=== PATIENT | male | born 1955 | race Caucasian/White ===

== ENCOUNTER 2016-06-22 18:59 | Observation (INO) | payer OTHER ==
[~2016-06-22] VITALS: Ht 172.7 cm; Wt 70.2 kg
[2016-06-22] MEDS ORDERED: losartan PO (19:38)
[2016-06-22] MEDS ORDERED: DOXA1TAB71 PO (19:38)
[2016-06-22] MEDS ORDERED: LEXA1TAB PO (19:38)
[2016-06-22] MEDS ORDERED: MULTLIQ7 PO (19:38)
[2016-06-22] MEDS ORDERED: NICOTINE 21MG/24HR 1 EA TRANSDERMAL TD SCH (21:00)
[2016-06-22] MEDS ORDERED: LOSA50TA20 PO (23:16)
[2016-06-22] MEDS ORDERED: VITMTA PO (23:16)
[2016-06-22] MEDS ORDERED: ACETAMINOPHEN TAB 650MG DOSE (2X325MG) PO PRN (23:30)
[2016-06-22] MEDS ORDERED: traZODone 50 MG TAB PO PRN ×2 (23:45)
[2016-06-23] VITALS (7 sets, daily range): BP systolic 120–173; BP diastolic 60–80
[2016-06-23] MEDS: TAMSULOSIN 0.4 MG CAP PO SCH ×2 (00:20→20:16)
[2016-06-23] MEDS ORDERED: SLF 3 ML SYR IV PRN (02:00)
[2016-06-23] MEDS: HEPARIN SOD (PORCINE) 5000 UNITS/ML VIAL SC SCH ×3 (06:34→20:16)
[2016-06-23] MEDS: SLF 3 ML SYR IV SCH ×3 (06:34→20:17)
[2016-06-23] MEDS ORDERED: POTASSIUM CHLORIDE 10 MEQ SR TABLET PO ONE (07:00)
[2016-06-23] MEDS: MULTIVITAMINS/MINERALS THERAP 1 TAB PO SCH (08:23)
[2016-06-23] MEDS ORDERED: PARoxetine 20 MG TAB PO SCH (09:00)
[2016-06-23] MEDS: NICOTINE 14 MG/24 HR TRANSDERMAL TD SCH (09:00)
[2016-06-23] MEDS ORDERED: LOSARTAN 50 MG TAB PO SCH (09:00)
[2016-06-23] MEDS: ALPRAZolam 0.25 MG TAB PO PRN ×2 (09:24→20:17)
[2016-06-23] MEDS: amLODIPine 5 MG TAB PO SCH (09:25)
--- NOTE | 2016-06-23 10:40 | IPNPDOC ---
Subjective Date Seen The patient was seen on 06/23/16. Subjective Chief Complaint/HPI The patient is a 60-year-old male admitted with a reason for visit of Depression , Hyponatremia. General: Denies: Chills, Fatigue, Night Sweats Constitutional: Denies: Chills, Fever, Malaise Eyes: Denies: Conjunctivae inflammation, Eyelid inflammation, Pain, Vision change ENT: Denies: Head Aches Skin: Denies: Jaundice, Lesions, Rash Pulmonary: Denies: Cough, Dyspnea Cardiovascular: Denies: Chest Pain, Orthopnea, Palpitations Gastrointestinal: Denies: Abdominal Pain, Nausea, Vomiting Neurological: Denies: Weakness Psych: Reports: Mood Normal, Denies: Anxiety, Depression Objective Physical Examination General Exam: Positive: Alert, Cooperative, No Acute Distress, Negative: Mild Distress, Moderate Distress Eye Exam: Positive: Conjunctiva & lids normal, EOMI, Negative: Ptosis, Sclera icteric ENT Exam: Positive: Atraumatic, Mucous membr. 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 fluid restricted Nephrology consulted-appreciate their input. Will repeat CMP today at noon. (2) Hypertension Status: Acute Problem Text: controlled on BP medical therapy, 150/60 (3) Depression Status: Acute Problem Text: maintained on anti-depression medication inpt., d/c SSRI and began Bupropion due to hyponatremia dx. (4) DVT prophylaxis Status: Acute Problem Text: heparin Plan/VTE VTE Prophylaxis Ordered?: Yes VS, I&O, 24H, Fishbone Vital Signs/I&O Vital Signs Date Time Temp Pulse Resp B/P Pulse Ox O2 Delivery O2 Flow Rate FiO2 06/23/16 09:25 68 150/60 06/23/16 08:26 Room Air 06/23/16 07:30 98.1 18 97 I&O- Last 24 Hours up to 6 AM 06/23/16 06:00 Intake Total 0 ml Output Total 250 ml Balance -250 ml Laboratory Data 24H LABS Laboratory Tests 2 06/22/16 21:32: Acetaminophen Level < 2.0L, Aspartate Amino Transf (AST/SGOT) 24, Alanine Aminotransferase (ALT/SGPT) 28, Alkaline Phosphatase 59, Total Bilirubin 0.6, Direct Bilirubin 0.2, Albumin 4.1, Albumin/Globulin Ratio 1.28, Anion Gap 8, Calcium Level 8.6, Ethyl Alcohol Level < 0.003, Glomerular Filtration Rate > 60.0, Osmolality 247L, Salicylates Level < 1.7L, Thyroid Stimulating Hormone ( TSH) 0.441, Total Protein 7.3, Urine Amorphous Sediment SMALLH, Urine Amphetamines Screen NEGATIVE, Urine Benzodiazepines Screen NEGATIVE, Urine Opiates Screen NEGATIVE, Urine Appearance HAZY, Urine Color YELLOW, Urine pH 6.0 , Urine Specific Jackson 1.010, Urine Protein NEGATIVE, Urine Glucose (UA) NEGATIVE, Urine Ketones TRACEH, Urine Urobilinogen 0.2, Urine Bilirubin NEGATIVE , Urine Leukocyte Esterase NEGATIVE, Urine Bacteria (Auto) NEGATIVE, Urine Barbiturates Screen NEGATIVE, Urine Blood NEGATIVE, Urine Calcium Carbonate Cryst(Auto) , Urine Calcium Oxalate Cryst (Auto) , Urine Calcium Phosphate Karina (Auto) , Urine Cannabinoids Screen POSITIVEH, Urine Cellular Casts , Urine Cocaine Metabolite Screen NEGATIVE, Urine Cystine Crystals , Urine Granular Casts (Auto) , Urine Hyaline Casts (Auto) 0, Urine Leucine Crystals , Urine Methadone Screen NEGATIVE, Urine Mucus (Auto) SMALL, Urine Nitrite NEGATIVE, Urine Oval Fat Bodies (Auto) , Urine Phencyclidine Screen NEGATIVE, Urine RBC ( Auto) 1, Urine Random Osmolality 387L, Urine Random Sodium 60, Urine Renal Epithelial Cells , Urine Sperm (Auto) , Urine Squamous Epithelial Cells 0, Urine Transitional Epithelial Cells , Urine Trichomonas (Auto) , Urine Triple Phosphate Cryst (Auto) , Urine Tyrosine Crystals , Urine Uric Acid Crystals ( Auto) , Urine WBC (Auto) 1, Urine Waxy Casts (Auto) , Urine Yeast-Like Cells ( Auto) 06/23/16 02:03: Anion Gap 11, Calcium Level 8.3L, Glomerular Filtration Rate > 60.0, Blood Urea Nitrogen 6L, Creatinine 0.66L, Sodium Level 123L, Potassium Level 3.3L, Chloride Level 83L, Carbon Dioxide Level 29 06/23/16 05:05: Anion Gap 9, Calcium Level 8.9, Glomerular Filtration Rate > 60.0, Blood Urea Nitrogen 6L, Creatinine 0.68L, Sodium Level 123L, Potassium Level 3.7, Chloride Level 84L, Carbon Dioxide Level 30, Cortisol AM Sample 21.5, Magnesium Level 2.0 CBC/BMP Laboratory Tests 06/22/16 21:32 Red Blood Count 3.83 L, Mean Corpuscular Volume 95.2, Mean Corpuscular Hemoglobin 34.1 H, Mean Corpuscular Hemoglobin Concent 35.8, Red Cell Distribution Width 11.4 L 06/23/16 02:03 Calcium Level 8.3 L 06/23/16 05:05 Red Blood Count 3.91 L, Mean Corpuscular Volume 95.7, Mean Corpuscular Hemoglobin 33.7 H, Mean Corpuscular Hemoglobin Concent 35.2, Red Cell Distribution Width 11.2 L, Calcium Level 8.9 Microbiology Microbiology 06/22/16 Urine Culture, Received Pending GME ATTESTATION GME ATTESTATION My preceptor for this patient encounter was physically present in the building during the encounter and was fully available. As needed, all aspects of the patient interview, examination, medical decision making process, and medical care plan development were reviewed and approved by the preceptor. Preceptor is aware and concurs with the plan as stated in the body of this note and will attest to such by his/her cosignature. ESSIE MARIANO DO Jun 23, 2016 10:40
[2016-06-23] MEDS: FOLIC ACID 1 MG TAB PO SCH (12:12)
[2016-06-23] MEDS: THIAMINE 100 MG TAB PO SCH (12:13)
[2016-06-23] MEDS: buPROPion (WELLBUTRIN SR) 100 MG SR TAB PO SCH ×2 (12:13→20:16)
--- NOTE | 2016-06-23 15:32 | HPE ---
DATE OF ADMISSION: 06/22/2016 PRIMARY CARE PROVIDER: Olga Gordillo NP CHIEF COMPLAINT: Worsening anxiety depression. HISTORY OF PRESENT ILLNESS: The patient is a 60-year-old male with a past medical history significant for chronic anxiety and depression, tobacco abuse, benign prostatic hypertrophy (BPH) presented to [facility] on 05/22/2016 for worsening anxiety and depression. The patient noted in the last one and half to two weeks the patient started to become very agitated. He has not been able to fall asleep. The patient noted to have worsening depression. The patient also noted to have difficulty with no more urinations. The patient has a history of benign prostatic hypertrophy (BPH) for more than 10 years. However, for the past five days, the patient has struggled very hard to get urinary output. The patient now feels there is impending doom that he may from some prostate or other medical condition. The patient's daily active function is greatly impaired and the patient's is very concerned about the patient's mental and physical deterioration. Therefore, she brought to [facility] for further evaluation. Other significant system includes the patient may have intermittent numbness of finger and also has lightheadedness, especially during the anxieties. Denies any other associated symptoms. Other significant history includes, the patient used to smoke one half pack daily for 25 years. The patient also quit smoking in the last week. The patient was seen by primary care provider approximately one week ago for his worsening anxiety and depression. The patient just started on the Lexapro six days ago. The patient has a history of using Paxil for his depression and his depression has been controlled around 15 to 20 years and he stopped Paxil probably a year ago. The patient stated he is being because of increased agitation and increased fear and the patient is worried about his prostate issues, so he tried to drink more than usual of water, but it did not result in increased urinary output. When the patient came to [facility], the patient was found to have a sodium of 120 and hospitalist team was called for admission. ALLERGIES: No known drug allergies. HOME MEDICATIONS: - Lexapro 10 mg by mouth daily, started six days ago - doxazosin 2 mg by mouth daily - losartan 50 mg by mouth daily - multivitamins one tab by mouth daily PAST MEDICAL HISTORY: 1. Anxiety/depression. 2. Benign prostatic hypertrophy (BPH). 3. Hypertension. PAST SURGICAL HISTORY: None. SOCIAL HISTORY: The patient used to smoke one half pack daily for 25 years, quit in the last seven days. The patient used to drink alcohol three to six beers daily. The patient used marijuana a few times. REVIEW OF SYSTEMS: GENERAL: No fever, no chills. HEENT: Intermittent lightheadedness, especially during the agitation and anxiety episode. Denies any vision changes, auditory changes or headache. CARDIOVASCULAR: Denies chest pain or palpitations. RESPIRATORY: No cough, no sputum production. GASTROINTESTINAL (GI): No nausea, no vomiting, no abdominal pain, no diarrhea. GENITOURINARY (): Has a history of benign prostatic hypertrophy (BPH) for more than 10 years. Has increased difficulty urinating in the last week. MUSCULOSKELETAL: Denies any muscle pains or joint pain. NEUROLOGICAL: Intermittent finger tingling. No numbness. OBJECTIVE: VITAL SIGNS: Temperature is 98.2, pulse is 71, respirations 18, blood pressure is 188/105, pulse oximetry is 96% on room air. GENERAL: Agitated. No sign of acute distress. Alert and oriented times three. HEENT: Normocephalic, atraumatic. Extraocular motor grossly intact. No jugular venous distension (JVD). Mildly dry oral mucosa. CARDIOVASCULAR: Positive S1, S2. Regular rate. GASTROINTESTINAL (GI): Abdomen soft, nontender, nondistended. Bowel sounds present. No suprapubic tenderness. EXTREMITIES: No edema. No signs of cyanosis. LABORATORY DATA: White blood count (WBC) 13.5, hemoglobin 13.1, hematocrit 36.5, platelet count 294. Sodium is 120, potassium is 3.5, chloride is 82, carbon dioxide is 30, BUN is 7, creatine is 0.62. Glomerular filtration rate (GFR) greater than 60. Fasting glucose 106. Serum osmolality 247, calcium 8.6, total bilirubin is 0.6, direct bilirubin is 0.2. AST 24, ALT is 29, alkaline phosphatase is 59, total protein is 7.3, albumin is 4.1, thyroid simulating hormone (TSH) is 0.441. Urine toxicology showed positive for marijuana, negative for alcohol. Urinalysis is negative. Urine culture pending. ASSESSMENT AND PLAN: 1. Severe hyponatremia. The patient was admitted to PCU in observation status based on the patient's history and the patient will be placed on fluid restriction for now. Will check the repeat sodium level. Will follow with urine osmolality and urine sodium level. Will also check with morning cortisone and type diuretic hormone level. 2. Benign prostatic hypertrophy (BPH). The patient will be on Flomax. Bladder scan to detect any urinary retention. 3. Uncontrolled anxiety and depression. The patient now has sense of pending doom. The patient has uncontrolled anxiety and depression. The patient was just started on Lexapro, but he does feel it is helping. However, it is only six day of treatment. For now, the patient was started on Paxil, which has been working in the past. The patient will have Xanax as needed and outpatient will have tramadol for the sleep and the depression. The patient will need psychiatric evaluation once the patient is medically stabilized. 4. Deep vein thrombosis (DVT) prophylaxis. The patient is on heparin.
[2016-06-23] MEDS: MOM 30ML SUSPENSION UDC PO PRN (16:18)
--- NOTE | 2016-06-23 20:22 | CR ---
DATE OF CONSULTATION: 06/23/2016 REQUESTING PHYSICIAN: Dr. Sharmila Wilson CONSULTING PHYSICIAN: Dr. Caba REASON FOR CONSULTATION: Management of hyponatremia. CHIEF COMPLAINT: The patient presented to the emergency room with worsening anxiety and depression. HISTORY OF THE PRESENT ILLNESS: Mr. William Boston is a 60-year-old male with a past medical history of chronic anxiety and depression, history of tobacco abuse. The patient reported that he quit smoking about 2 weeks ago, and because of that, he became very agitated. He was not able to sleep. His depression got worse, so he went to the [facility] where he was given Lexapro. He took his Lexapro for about 6 days. His last dose was yesterday but with the Lexapro, he started having lightheadedness, weakness, decreased memory, decreased appetite, worsening anxiety. The patient was brought to the emergency room at [facility] yesterday. Of note, on arrival, he was found to have a sodium level of 120 in the emergency room , so nephrology service was called for help in further management of symptomatic hyponatremia. PAST MEDICAL HISTORY: Depression and anxiety. BPH. Hypertension. PAST SURGICAL HISTORY: No significant past surgical history. ALLERGIES: No known drug allergies. HOME MEDICATIONS: The patient's home medications include: - doxazosin 2 mg by mouth daily - Lexapro 10 mg by mouth daily - losartan 50 mg by mouth daily FAMILY HISTORY: No significant family history of end-stage renal disease requiring hemodialysis. SOCIAL HISTORY: The patient lives at home. He admits to using marijuana yesterday. He used to smoke about half a pack of cigarettes daily, and he quit about 2 weeks ago. The patient is used to drinking alcohol about 3-6 beers every day, but he reports that in the last 1 week, he drank about 3-4 cans of beer. REVIEW OF SYSTEMS: CONSTITUTIONAL: He reports generalized weakness and lightheadedness. EYES: He denies any blurry vision or double vision. ENT: He denies any dysphagia or odynophagia, but he does report lightheadedness. He denies any ear discharge or ear pain. CARDIOVASCULAR: He denies any chest pain or palpitations. RESPIRATORY: He denies any cough or dyspnea. GASTROINTESTINAL: He denies any nausea, vomiting, but he does report decreased appetite. GENITOURINARY: He reports a history of BPH, but he denies any history of hematuria or dysuria. MUSCULOSKELETAL: He denies any muscle aches and pains. NEUROLOGICAL: He reports tingling of the fingers, and he reports lightheadedness and weakness. SKIN: He denies any rashes or ulcers. PSYCHIATRIC: He reports a history of depression and anxiety. ENDOCRINE: He denies any history of hyperthyroidism, hypothyroidism or diabetes. All other review of systems is negative. PHYSICAL EXAMINATION: GENERAL: The patient is awake, alert, oriented times three, laying in the bed, in no apparent distress at this time. VITAL SIGNS: Temperature is 98.2 degrees Fahrenheit. Blood pressure is 138/60, pulse is 73, respiratory rate of 18, saturating 97% on room air. INTAKE/OUTPUT: Urine output recorded since overnight is 950 mL. Weight on the bed scale is 73.3 kg. HEAD AND NECK EXAM: Extraocular muscles intact. Pupils equally round and reactive to light. Mucous membranes are moist. Neck is supple. There is no jugular venous distention (JVD). CARDIOVASCULAR: S1, S2. Regular rate. No murmur, rub or gallop. RESPIRATORY: Chest is clear to auscultation bilaterally. Bilateral equal air entry. No rales or rhonchi. ABDOMEN: Soft. Positive bowel sounds. Nontender. No ascites. No organomegaly. EXTREMITIES: No clubbing or cyanosis. Pulses are 2+. CENTRAL NERVOUS SYSTEM: No focal neurological deficit. Power is 5/5 in all extremities. PSYCHIATRIC: Normal mood and affect. LAB REVIEW: CBC showed a WBC of 10.2, hemoglobin 13.2, platelets are 274. BMP showed sodium 123, potassium 3.7, chloride 84, bicarbonate is 30, BUN is 6, creatinine is 0.68, calcium is 8.9, magnesium is 2. Morning cortisol is 21.5. ADH level is pending. Urine random osmolality is 332. Random sodium is 60. CURRENT MEDICATIONS: The patient's inpatient medications include: - Tylenol as needed - Xanax 0.25 mg every 6 hours as needed - amlodipine 5 mg by mouth daily - bupropion 100 mg by mouth twice a day - folic acid 1 mg by mouth daily - heparin 5000 subcu very 8 hours - milk of magnesia as needed - multivitamin - nicotine patch - Losartan was STOPPED by me. - Paxil was STOPPED today. - potassium chloride 40 mEq by mouth one dose was given today/morning. - Flomax 0.4 mg by mouth nightly - thiamine 100 mg by mouth daily - trazodone was STOPPED. ASSESSMENT: A 60-year-old male with a past medical history of anxiety and depression, recently quit smoking and started on Lexapro, history of hypertension, admitted at this time because of symptomatic hyponatremia. PLAN: 1. 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 Hold current antipsychotic medication. Most likely culprit might be Lexapro. Psychiatric medications have already been stopped by the primary team. Continue to hold losartan as well, which can sometimes cause hyponatremia. The patient's sodium on a repeat BMP came up to 125, so he has corrected by around 5 mEq since last night. I am not going to do any intervention at this time. Continue the fluid restriction at 1200 mL per day. Continue to monitor intake and output. Sodium is expected to improve by holding the antipsychotic medications. If the patient's serum sodium does not continue to improve by tomorrow morning, then he will be given a dose of tolvaptan. 2. Hypertension. Continue to hold losartan at this time because of hyponatremia. I have placed the patient on amlodipine 5 mg by mouth daily. 3. Hypokalemia. The patient's potassium was repleted with 40 mEq of KCl. Potassium is improved to 3.8 now. Replete potassium as needed to keep level above 3.5. 4. History of depression and anxiety. The patient has been started on bupropion 100 mg by mouth twice a day. The rest of the psych medications have been stopped. Avoid selective serotonin reuptake inhibitors (SSRIs) in the future because of hyponatremia. Plan of care was discussed with the hospitalist team, Dr. Sharmila Wilson. Thank you for involving us in the care of this patient. We shall be happy to follow the patient along with you tomorrow morning. LOS
[2016-06-23] MEDS ORDERED: TAMSULOSIN 0.4 MG CAP PO SCH (21:00)
--- NOTE | 2016-06-23 21:39 | ECGEPIP ---
Stationary ECG Study [facility] - ED Test Date: 2016-06-22 Pat Name: YSABEL YAO Department: Room: [place] [address] Gender: M [employer]: chely : [id number] Requested By: SYDNEE Zuleta Order Number: [id number] Reading MD: Luisa Perdomo Measurements Intervals [place] Rate: 62 P: 0 MD: 170 QRS: 66 QRSD: 91 T: 43 QT: 405 QTc: 413 Interpretive Statements SINUS RHYTHM NO PRIOR FOR COMPARISON Electronically Signed On 06-23-2016 21:39:30 EDT by Luisa Perdomo
[2016-06-24 04:00] VITALS: BP 117/60
[2016-06-24] MEDS: HEPARIN SOD (PORCINE) 5000 UNITS/ML VIAL SC SCH ×3 (05:08→20:26)
[2016-06-24] MEDS: SLF 3 ML SYR IV SCH ×3 (05:08→20:25)
[2016-06-24 07:45] VITALS: BP 155/78
[2016-06-24] MEDS: buPROPion (WELLBUTRIN SR) 100 MG SR TAB PO SCH ×2 (08:48→20:26)
[2016-06-24] MEDS: THIAMINE 100 MG TAB PO SCH (08:48)
[2016-06-24] MEDS: MULTIVITAMINS/MINERALS THERAP 1 TAB PO SCH (08:48)
[2016-06-24] MEDS: amLODIPine 5 MG TAB PO SCH (08:48)
[2016-06-24] MEDS: NICOTINE 14 MG/24 HR TRANSDERMAL TD SCH (08:48)
[2016-06-24] MEDS: FOLIC ACID 1 MG TAB PO SCH (08:48)
[2016-06-24 12:00] VITALS: BP 148/70
--- NOTE | 2016-06-24 12:27 | REP ---
TWO CHEST: NO comparison. There is no evidence of acute infiltrate. No pleural effusion is seen. The heart is normal in size. The mediastinal silhouette is unremarkable. The visualized osseous structures are intact. IMPRESSION: No acute pulmonary disease. Signed by Lucian Campbell MD 06/24/2016 04:38 P
[2016-06-24 16:00] VITALS: BP 156/78
--- NOTE | 2016-06-24 16:14 | IPNPDOC ---
Subjective Date Seen The patient was seen on 06/24/16. Subjective Chief Complaint/HPI The patient is a 60-year-old male admitted with a reason for visit of Depression , Hyponatremia. General: Denies: Chills, Night Sweats Constitutional: Denies: Chills, Fever Eyes: Denies: Pain, Vision change ENT: Denies: Ear Pain, Head Aches Skin: Denies: Lesions, Rash Pulmonary: Denies: Cough, Dyspnea Cardiovascular: Denies: Chest Pain, Palpitations Gastrointestinal: Denies: Nausea, Vomiting Genitourinary: Denies: Dysuria, Frequency Hematologic: Denies: Bleeding Excessively, Bruising Musculoskeletal: Denies: Back Pain, Neck Pain Objective Physical Examination General Exam: Positive: Alert, Cooperative, No Acute Distress, Negative: Mild Distress, Moderate Distress Eye Exam: Positive: Conjunctiva & lids normal, EOMI, Negative: Ptosis, Sclera icteric ENT Exam: Positive: Atraumatic, Mucous membr. moist/pink, Nares Patent, Tongue Midline Neck Exam: Positive: Supple Chest Exam: Positive: Clear to auscultation, Normal air movement, Negative: Rales, Rhonchi, Wheezing Heart Exam: Positive: Normal S1, Normal S2, Rate Normal, Negative: Bradycardic, Tachycardic Abdomen Exam: Positive: Normal bowel sounds, Soft, Negative: Hepatospenomegaly, Tenderness Extremity Exam: Negative: Clubbing, Edema Assessment /Plan Problems (1) Hyponatremia Status: Acute Response to Treatment: Improving Problem Text: Likely 2/2 SIADH from Lexapro use Serum Sodium improved to 128 this AM Continue fluid restriction as the patient continues to improve Nephrology consulted-appreciate their input. Will continue to monitor Serum Sodium levels (2) Hypertension Status: Chronic Response to Treatment: Stable Problem Text: Continue current Regimen, will hold Losartan as this may have contributed to Hyponatremia (3) Depression Status: Chronic Problem Text: d/c'd SSRI Started on Bupropion and tolerating well at this time Patient states that he is feeling much better at this time and denies any anxiety, depressive symptoms, suicidal or homicidal ideations. The patient's who is a nurse is at the bedside and notes a marked improvement in the patient. According to the patient, he was more nervous about why he felt so lethargic and tired after he started the Lexapro, but denies any other acute complaints since the medication has been discontinued (4) Weight loss Status: Chronic Response to Treatment: Stable Problem Text: Patient does state that he has lost 20 lbs over the last 3 months , and does note that part of this has been intentional, as he has been dieting. However, his family his concerned about other possible causes. CXR revealed no source of masses TSH wnl I have counseled the patient to follow up as an outpatient to have cancer screening tests performed, and he has told me that he already has an appt with his PCP Olga Irving to follow up for this. (5) DVT prophylaxis Status: Chronic Response to Treatment: Stable Problem Text: heparin Plan/VTE VTE Prophylaxis Ordered?: Yes VS, I&O, 24H, Fishbone Vital Signs/I&O Vital Signs Date Time Temp Pulse Resp B/P Pulse Ox O2 Delivery O2 Flow Rate FiO2 06/24/16 12:00 98.8 68 22 148/70 96 Room Air I&O- Last 24 Hours up to 6 AM 06/24/16 06:00 Intake Total 790 ml Output Total 1000 ml Balance -210 ml Laboratory Data 24H LABS Laboratory Tests 2 06/24/16 05:11: Anion Gap 7L, Blood Urea Nitrogen 10, Creatinine 0.81, Sodium Level 128L, Potassium Level 3.5, Chloride Level 90L, Carbon Dioxide Level 31, Calcium Level 8.3L, Glomerular Filtration Rate > 60.0 CBC/BMP Laboratory Tests 06/24/16 05:11 Calcium Level 8.3 L, Red Blood Count 3.87 L, Mean Corpuscular Volume 97.1 H, Mean Corpuscular Hemoglobin 34.5 H, Mean Corpuscular Hemoglobin Concent 35.6, Red Cell Distribution Width 11.4 L Microbiology Microbiology 06/22/16 Urine Culture - Final, Complete Streptococcus Cristatus MARINA HELLER MD Jun 24, 2016 16:14
[2016-06-24] MEDS: ALPRAZolam 0.25 MG TAB PO PRN ×2 (18:18→23:55)
[2016-06-24 20:00] VITALS: BP_SYST 138; BP_SYST 142; BP_DIAS 70; BP_DIAS 79
[2016-06-24] MEDS: TAMSULOSIN 0.4 MG CAP PO SCH (20:26)
[2016-06-24 23:59] VITALS: BP_SYST 142; BP_SYST 174; BP_DIAS 70; BP_DIAS 86
[2016-06-25 04:00] VITALS: BP 159/72
[2016-06-25] MEDS: SLF 3 ML SYR IV SCH (05:16)
[2016-06-25] MEDS: HEPARIN SOD (PORCINE) 5000 UNITS/ML VIAL SC SCH (05:16)
[2016-06-25] MEDS ORDERED: POTASSIUM CHLORIDE 10 MEQ SR TABLET PO ONE (06:30)
--- NOTE | 2016-06-25 06:56 | IPN ---
DATE: 06/24/2016 SUBJECTIVE: The patient was seen and examined at the bedside today in the morning. His sodium level continues to improve. He is feeling much better; however, patient continues to be anxious for minor things. He is really concerned that his bed weight is not accurate. REVIEW OF SYSTEMS: The patient denies any fevers, chills, rigors, headache, nausea, vomiting, chest pain, shortness of breath, pain in abdomen, constipation, or diarrhea. The rest of the review of systems is negative. OBJECTIVE: VITAL SIGNS: Temperature 98.7 degrees Fahrenheit. Blood pressure 155/78. Pulse 87. Respiratory rate 18. Saturating 96% on room air. INTAKE AND OUTPUT: Urine output recorded was 1 liter yesterday and about 500 mL so far today since overnight. Weight on the bed scale is 70.5 kg. PHYSICAL EXAM: GENERAL: The patient is awake, alert, oriented times three, no apparent distress, sitting on the bed. HEAD AND NECK EXAM: Extraocular muscles intact. Pupils equally round and reactive to light. Mucous membranes are moist. Neck is supple. There is no jugular venous distention. CARDIOVASCULAR: S1, S2. Regular rate. No murmur, rub or gallop. RESPIRATORY: Chest is clear to auscultation bilaterally. Bilateral equal air entry. No rales or rhonchi. ABDOMEN: Soft. Positive bowel sounds. Nontender. No ascites. No organomegaly. EXTREMITIES: No clubbing or cyanosis. Pulses are 2+. CENTRAL NERVOUS SYSTEM: No focal neurological deficit. Power is 5/5 in all extremities. PSYCHIATRIC: Patient is very anxious, otherwise cooperative during the exam. LAB REVIEW: CBC showed a WBC of 8.4, hemoglobin 13.4, and platelets are 317. BMP showed sodium of 128, which is improved from 125 yesterday, potassium 3.5, chloride 90, bicarbonate 31, BUN 10, creatinine 0.8, calcium 8.3. MICROBIOLOGY: Urine culture is growing Streptococcus cristatus which is about 30,000 colonies. CURRENT MEDICATIONS: Patient's medications were all reviewed by me. There is no change in the medications today as compared with yesterday. ASSESSMENT: 60-year-old male with past medical history of depression and anxiety, hypertension and benign prostatic hypertrophy (BPH) admitted at this time because of symptomatic hyponatremia. PLAN: 1. Euvolemic hypotonic hyponatremia. It was secondary to syndrome of inappropriate secretion of antidiuretic hormone (SIADH), most likely it was secondary to Lexapro. His Lexapro has been stopped. Antipsychotic medications have been changed. Sodium continues to improve. Sodium is 128 now, which is significantly better. Continue to restrict fluid for intake to 1200 mL per day. Sodium is expected to improve within the next two days. 2. Hypertension. Losartan was held because of hyponatremia. He has been started on amlodipine 5 mg by mouth daily. Blood pressure is acceptable at this time. If needed, amlodipine dose can be increased to 10 mg by mouth daily. 3. Hypokalemia. Replete potassium as needed to keep potassium level 3.5 and above. 4. History of depression and anxiety. The patient has been started on bupropion. Lexapro has been stopped. Patient should not get selective serotonin reuptake inhibitor (SSRI again because of hyponatremia. The rest of the management is as per primary team. 5. BPH. The patient was on doxazosin which was given to him from the emergency room. That has been stopped. He is currently on Flomax 0.4 mg by mouth daily.
[2016-06-25 07:45] VITALS: BP 140/76
[2016-06-25] MEDS: MOM 30ML SUSPENSION UDC PO PRN (08:41)
[2016-06-25] MEDS: FOLIC ACID 1 MG TAB PO SCH (08:41)
[2016-06-25 08:42] VITALS: BP 140/76
[2016-06-25] MEDS: buPROPion (WELLBUTRIN SR) 100 MG SR TAB PO SCH (08:42)
[2016-06-25] MEDS: MULTIVITAMINS/MINERALS THERAP 1 TAB PO SCH (08:42)
[2016-06-25] MEDS: THIAMINE 100 MG TAB PO SCH (08:42)
[2016-06-25] MEDS: amLODIPine 5 MG TAB PO SCH (08:42)
[2016-06-25] MEDS: NICOTINE 14 MG/24 HR TRANSDERMAL TD SCH (08:42)
[2016-06-25] MEDS ORDERED: AMLO5TAB2 PO (10:45)
[2016-06-25] MEDS ORDERED: ALPR0.25 PO (10:45)
[2016-06-25] MEDS ORDERED: BUPR10TASR PO (10:45)
[2016-06-25] MEDS ORDERED: FLOM5CAP PO (11:49)
--- NOTE | 2016-06-25 15:28 | DS.PDOC ---
Discharge Summary General Date of Admission Jun 22, 2016 at 23:29 Date of Discharge 06/25/2016 Discharge Summary PROCEDURES PERFORMED DURING STAY: None. ADMITTING DIAGNOSES: 1. . Hyponatremia secondary to SIADH DISCHARGE DIAGNOSES: 1. . Hyponatremia secondary to SIADH COMPLICATIONS/CHIEF COMPLAINT: Depression, Hyponatremia. HISTORY OF PRESENT ILLNESS: . 60-year-old male with past medical history of anxiety, BPH, and hypertension presented to the ER after he states that he felt increasingly anxious, agitated , with complaints of lethargy and fatigue as well. The patient states that he was recently started on Lexapro by his primary care physician for the above complaints. He denied any acute complaints of fevers, chills, chest pain, shortness of breath, abdominal pain, or any nausea/vomiting/diarrhea. The patient denied any complaints of suicidal, homicidal ideations or any depressive symptoms. In the ER, the patient's serum sodium was noted to be 120. The patient was admitted to the hospitalist service for further evaluation and management of hyponatremia. During hospitalization, the patient's hyponatremia was attributed to be secondary to SIADH from the Lexapro which was initiated 7 days ago. Nephrology was consulted, and the patient was started on a fluid restricted diet, and the Lexapro was discontinued. Patient's serum sodium has corrected appropriately to 130 today. The patient's Lexapro was switched over to Wellbutrin to treat the patient's underlying anxiety, depression. At this time, the patient states that he is feeling much better, and he denies any acute complaints of depressive symptoms, or any suicidal or homicidal ideation. The patient's , who is a nurse herself, states that her appears much improved, and is glad that they were able to find a diagnosis as to why he was feeling the way he was prior to hospitalization. Also of note, the patient had a chest x-ray which was negative for any acute findings, I have advised the patient to follow-up with his primary care physician and have appropriate cancer screening done in view of the patient's underlying concern for weight loss over the last 6 months. At this time, the patient states that he is feeling much better and is eager to return home. I've advised the patient to follow-up with his primary care physician within 5-7 days for repeat BMP. In addition, should the patient begin to feel ill, or his symptoms return, I have advised him to return to the ER for further evaluation and management. DISCHARGE MEDICATIONS: Please see below. ALLERGIES: Please see below. PHYSICAL EXAMINATION ON DISCHARGE: VITAL SIGNS: Please see below. General Exam: Positive: Alert, Cooperative, No Acute Distress, Negative: Mild Distress, Moderate Distress Eye Exam: Positive: Conjunctiva & lids normal, EOMI, Negative: Ptosis, Sclera icteric ENT Exam: Positive: Atraumatic, Mucous membr. moist/pink, Nares Patent, Tongue Midline Neck Exam: Positive: Supple Chest Exam: Positive: Clear to auscultation, Normal air movement, Negative: Rales, Rhonchi, Wheezing Heart Exam: Positive: Normal S1, Normal S2, Rate Normal, Negative: Bradycardic, Tachycardic Abdomen Exam: Positive: Normal bowel sounds, Soft, Negative: Hepatospenomegaly, Tenderness Extremity Exam: Negative: Clubbing, Edema LABORATORY DATA: Please see below. IMAGING: TWO CHEST: NO comparison. There is no evidence of acute infiltrate. No pleural effusion is seen. The heart is normal in size. The mediastinal silhouette is unremarkable. The visualized osseous structures are intact. IMPRESSION: No acute pulmonary disease. PROGNOSIS: Medically stable ACTIVITY: As tolerated. DIET: . 1 L Fluid restricted diet, until the patient has a follow-up BMP DISCHARGE PLAN: DISPOSITION: . Home DISCHARGE INSTRUCTIONS: 1. . Follow-up with primary care physician within 5-7 days for repeat BMP ITEMS TO FOLLOWUP ON ON OUTPATIENT: 1. . Have appropriate cancer screening as per guidelines performed as an outpatient (screening colonoscopy, low dose CT scan of the chest) DISCHARGE CONDITION: Stable. TIME SPENT ON DISCHARGE: Greater than 30 minutes. Vital Signs/I&Os Vital Signs Date Time Temp Pulse Resp B/P Pulse Ox O2 Delivery O2 Flow Rate FiO2 06/25/16 08:46 Room Air 06/25/16 08:42 67 140/76 06/25/16 07:45 98.4 20 96 I&O- Last 24 Hours up to 6 AM 06/25/16 06:00 Intake Total 840 ml Output Total 950 ml Balance -110 ml Laboratory Data Labs 24H Laboratory Tests 2 06/25/16 05:11: Anion Gap 8, Blood Urea Nitrogen 10, Creatinine 0.81, Sodium Level 130L, Potassium Level 3.4L, Chloride Level 92L, Carbon Dioxide Level 30, Calcium Level 8.9, Glomerular Filtration Rate > 60.0 CBC/BMP Laboratory Tests 06/25/16 05:11 Calcium Level 8.9, Red Blood Count 4.08 L, Mean Corpuscular Volume 97.0 H, Mean Corpuscular Hemoglobin 33.7 H, Mean Corpuscular Hemoglobin Concent 34.7, Red Cell Distribution Width 11.2 L Microbiology Microbiology 06/22/16 Urine Culture - Final, Complete Streptococcus Cristatus Discharge Medications Scheduled Amlodipine Besylate (Amlodipine Besylate) 5 Mg Tab 5 MG PO DAILY Bupropion Hcl (Wellbutrin Sr) 100 Mg Tabsr 100 MG PO BID Multivitamins *[facility] STOCKED* (Thera M Plus *[facility] STOCK[facility]*) 1 Tab Tab 1 TAB PO DAILY (Reported) Tamsulosin Hydrochloride (Flomax) 0.4 Mg Cap 0.4 MG PO QHS Scheduled PRN Alprazolam (Alprazolam) 0.25 Mg Tab 0.25 MG PO QHSP PRN PRN ANXIETY Allergies Coded Allergies: No Known Allergies (Unverified , 06/22/16) MARINA HELLER MD Jun 25, 2016 15:28
--- NOTE | 2016-06-26 20:15 | IPN ---
DATE OF VISIT: 06/25/2016 SUBJECTIVE: The patient was seen and examined at the bedside today in the morning. He was feeling much better. His sodium level is 130 today. He is asymptomatic at this time. Renal function is stable. REVIEW OF SYSTEMS: The patient denies any fever, chills, rigors, headache, nausea or vomiting, chest pain, shortness of breath, pain in the abdomen, constipation or diarrhea. The rest of the review of systems is negative. OBJECTIVE: VITAL SIGNS : Temperature 98.4 degrees Fahrenheit, blood pressure 140/76, pulse 67, respiratory rate 18, saturating 96% on room air. Intake and output: Urine output recorded as 850 mL yesterday, 550 mL so far today since overnight. Weight in the bed scale is 70.2 kg. PHYSICAL EXAMINATION: GENERAL: The patient is awake, alert and oriented times three, sitting in the bed, no apparent distress. HEAD/NECK: Extraocular muscles intact, pupils equal, round, reactive to light. Moist mucous membranes. Neck is supple. There is no jugular venous distention (JVD). CARDIOVASCULAR: S1, S2, regular rate. No murmurs, rubs, gallops. RESPIRATORY: Chest is clear to auscultation bilaterally. Bilateral equal air entry. No rales or rhonchi. ABDOMEN: Soft, positive bowel sounds, nontender. No ascites, no organomegaly. EXTREMITIES: No clubbing or cyanosis. Pulses are 2+. CENTRAL NERVOUS SYSTEM (ADMINISTRATIVE SUPPORT CLERK): No focal neurological deficits. Power is 5/5 in all extremities. PSYCHIATRIC: The patient has a normal mood and affect today. LAB REVIEW: CBC showed WBC 9.4, hemoglobin 13.7, platelets at 369. BMP shows sodium 130, potassium 3.4, chloride 92, bicarbonate 30, BUN 10, creatinine 0.8. CURRENT MEDICATIONS: The patient's medications were all reviewed by me today. There is no change in the medications today as compared with yesterday. ASSESSMENT: 1. 60-year-old male with past medical history of depression and anxiety, hypertension and benign prostatic hypertrophy (BPH) admitted this time because of symptomatic hyponatremia. Sodium continues to improve which is 130 today. Continue the fluid restriction 1200 mL by mouth daily. 2. Hypertension. Losartan was held because of hyponatremia. He is currently on amlodipine. Continue the current dose of 5 mg by mouth daily. The dose can be increased as an outpatient if blood pressure is not within the acceptable range. 3. Hypokalemia. The patient was given another dose of potassium chloride 40 mEq by mouth times one dose. 4. History of depression and anxiety. The patient should not get selective serotonin reuptake inhibitor (SSRI) again because of hyponatremia. The rest of the management is per the primary team. DISCHARGE PLANNING: It is okay to discharge the patient from nephrology at this time. MTDD
== END 2016-06-25 11:58 | disposition home or self-care (01) ==
LOC: M ED 20:07 → M ED INP 23:29 → M PCU 06-23 01:30
PROVIDERS: ADMIT Internal Medicine; ATTEND Internal Medicine
DX: E22.2 Syndrome of inappropriate secretion of antidiuretic hormone (principal); N40.0 Benign prostatic hyperplasia without lower urinary tract symptoms; I10 Essential (primary) hypertension; F41.9 Anxiety disorder, unspecified; F32.9 Major depressive disorder, single episode, unspecified; Z79.899 Other long term (current) drug therapy
CPT/HCPCS: 36415; 71020; 80048; 80076; 80306; 81001; 82533; 82570; 83735; 83930; 83935; 84300; 84443; 84588; 85027; 87088; 87186; 93005; 93041; 96372; 96376; 99285; G0480